=== PATIENT | female | born 1985 | race Caucasian/White ===

== ENCOUNTER → 2017-04-28 | Outpatient (CLI) | payer BC ==
--- NOTE | 2017-04-28 18:46 | DIAGNOSTIC IMAGING REPORT ---
ULTRASOUND LEFT VENOUS DOPP LOWER EXT UNILAT CLINICAL HISTORY: L LOWER LEG PAIN COMPARISON STUDY: No previous studies for comparison. FINDINGS: Real-time and color flow Doppler imaging were performed. Flow was seen within the femoral, popliteal and calf veins with no intraluminal thrombus demonstrated. The saphenous vein is patent. IMPRESSION: No evidence of left lower extremity DVT. Electronically signed by: Isidoro Warren M.D. 04/28/2017 6:45 PM Dictated Date/Time: 04/28/2017 6:44 PM
== END | disposition home or self-care (01) ==
LOC: C.ULTR 18:03
PROVIDERS: ATTEND Family Medicine
DX: M79.605 Pain in left leg (principal)